=== PATIENT | female | born 1945 | race Asian ===

== ENCOUNTER 2017-06-07 07:57 | Emergency (ER) | payer OTHER ==
[2017-06-07 08:18] VITALS: RESP 16
[2017-06-07] MEDS ORDERED: ASPIRIN 81 MG CHEWABLE TAB PO ONE (08:19)
--- NOTE | 2017-06-07 08:26 | EDPHY ---
H & P Time Seen by Provider: 06/07/17 08:13 HPI/ROS: HPI Left upper back pain. 72-year-old female by private vehicle with her . This patient complains of left upper back and shoulder pain for 3 days. The pain is described as a burning ache. It is not worse with movement specifically. It has been constant. No associated shortness of breath. No associated chest pain. There is no history of trauma or other inciting event. ROS: Constitutional: No fever, no chills. No weakness. Eyes: No discharge. No changes in vision. ENT: No sore throat. No nasal congestion or rhinorrhea. Respiratory: No cough. No shortness of breath. Cardiac: No chest pain, no palpitations. Gastrointestinal: No abdominal pain, no vomiting, no diarrhea. Genitourinary: No hematuria. No dysuria or increased frequency with urination. Musculoskeletal: As above. No neck pain. No other extremity pain. Skin: No rashes. Neurological: No headache. No focal weakness or altered sensation. Past medical history: Hypertension. She takes metoprolol. No medication allergies. She has a primary care physician in this building. Social history: Nonsmoker. No alcohol. Here with her . Physical Exam: General Appearance: Alert, no distress. This patient is responding to questions appropriately and in full sentences. This patient appears well- hydrated and well-nourished. Eyes: Pupils equal and round no pallor or injection. No lid edema, erythema or injection. Respiratory: There are no retractions, lungs are clear to auscultation with good air movement bilaterally. Cardiovascular: Regular rate and rhythm. No murmur. Gastrointestinal: Abdomen is soft and nontender, no masses, bowel sounds normal. No focal tenderness at McBurney's point. No Mayes sign. Neurological: Motor sensory function is grossly intact. Cranial nerves are normal. Gait is normal. Skin: Warm and dry, erythematous vesicular rash patch a little larger than a silver dollar, left posterior shoulder just over the mid scapula. Blanching. No petechiae. This is directly over the area where she describes her pain. Musculoskeletal: Neck is supple and nontender. Extremities are symmetrical. All joints range without pain or impingement. Psychiatric: No agitation. No depression. Database: EKG: EKG time is 8:29 a.m.; EKG shows a narrow complex normal sinus rhythm with a ventricular rate of 64. The VT, QRS, QT intervals are within normal limits. There are no ST-T wave changes indicative of ischemic or injury pattern. No evidence of right heart strain. Interpreted by me. Imaging: Chest x-ray AP portable; the cardiac mediastinal silhouette is unremarkable. No evidence of infiltrate or pneumothorax. No acute cardiopulmonary disease process noted. Interpreted by me. Procedures: Emergency department course: IV placed. She was placed on a monitor. EKG performed and reviewed by myself. She was given 324 mg of chewed aspirin. No history of traumatic event. Rash on left posterior shoulder area suggestive of early zoster. Will evaluate for cardiac etiology. If negative plan will be to treat for shingles. 9:35 a.m., patient re-evaluated. Resting comfortably at this time. Results of her emergency department workup discussed with her and her . Her presentation and the results of her diagnostic testing are all reassuring that this is not secondary to a cardiac cause or pulmonary embolism. Based on her physical exam and vesicular rash as noted above her presentation is consistent with zoster. Plan will be to treat her with valacyclovir, calamine lotion directly to the area and NSAIDs. She will then follow up with her primary care physician for recheck on Saturday. The patient and her endorse this plan. I discussed return to emergency department precautions in detail with them. All of their questions were answered. The patient was discharged in good condition. Differential Diagnosis: The differential diagnosis on this patient includes but is not limited to musculoskeletal back pain, shingles, pulmonary embolism, cardiac cause. This represents a partial list of diagnoses considered. These considerations are based on history, physical exam, past history, reassessment and diagnostic testing. Constitutional: Initial Vital Signs Heart Rate 62 06/07/17 08:13 Respiratory Rate 16 06/07/17 08:13 Blood Pressure 182/102 H 06/07/17 08:13 O2 Sat (%) 99 06/07/17 08:13 O2 Delivery Mode Room Air Allergies/Adverse Reactions: No Known Allergies Allergy (Verified 06/07/17 08:13) Home Medications: Medication Instructions Recorded Hydrochlorothiazide 06/07/17 Metoprolol Tartrate 06/07/17 Potassium 06/07/17 Valacyclovir HCl [Valtrex] 1,000 mg PO TID #21 tab 06/07/17 Medical Decision Making - Diagnostics Imaging Results: Imaging Impressions Chest X-Ray 06/07/17 08:19 Impression: No acute conventional radiographic abnormality. - Data Points Laboratory Results: Laboratory Results 06/07/17 08:45 06/07/17 08:45 06/07/17 06/07/17 06/07/17 08:45 08:45 08:45 WBC 6.18 10^3/uL 10^3/uL (3.80-9.50) RBC 5.21 10^6/uL 10^6/uL (4.18-5.33) Hgb 14.6 g/dL g/dL (12.6-16.3) Hct 42.1 % % (38.0-47.0) MCV 80.8 fL L fL (81.5-99.8) MCH 28.0 pg pg (27.9-34.1) MCHC 34.7 g/dL g/dL (32.4-36.7) RDW 13.3 % % (11.5-15.2) Plt Count 250 10^3/uL 10^3/uL (150-400) MPV 8.6 fL L fL (8.7-11.7) Neut % (Auto) 68.6 % % (39.3-74.2) Lymph % (Auto) 21.7 % % (15.0-45.0) [place] % (Auto) 8.4 % % (4.5-13.0) Eos % (Auto) 0.5 % L % (0.6-7.6) Baso % (Auto) 0.5 % % (0.3-1.7) Nucleat RBC Rel Count 0.0 % % (0.0-0.2) Absolute Neuts (auto) 4.24 10^3/uL 10^3/uL (1.70-6.50) Absolute Lymphs (auto) 1.34 10^3/uL 10^3/uL (1.00-3.00) Absolute Monos (auto) 0.52 10^3/uL 10^3/uL (0.30-0.80) Absolute Eos (auto) 0.03 10^3/uL 10^3/uL (0.03-0.40) Absolute Basos (auto) 0.03 10^3/uL 10^3/uL (0.02-0.10) Absolute Nucleated RBC 0.00 10^3/uL 10^3/uL (0-0.01) Immature Gran % 0.3 % % (0.0-1.1) Immature Gran # 0.02 10^3/uL 10^3/uL (0.00-0.10) PT 12.7 SEC SEC (12.0-15.0) INR 0.98 (0.83-1.16) APTT 28.0 SEC SEC (23.0-38.0) D-Dimer 0.37 ug/mLFEU ug/mLFEU (0.00-0.50) Sodium 133 mEq/L L mEq/L (134-144) Potassium 4.2 mEq/L mEq/L (3.5-5.2) Chloride 96 mEq/L L mEq/L (97-110) Carbon Dioxide 26 mEq/l mEq/l (22-31) Anion Gap 11 mEq/L mEq/L (8-16) BUN 10 mg/dL mg/dL (7-23) Creatinine 0.6 mg/dL mg/dL (0.6-1.0) Estimated GFR > 60 Glucose 88 mg/dL mg/dL (70-100) Calcium 9.2 mg/dL mg/dL (8.5-10.4) Creatine Kinase 63 IU/L IU/L (0-156) CK-MB (CK-2) Fraction 1.19 ng/mL ng/mL (0.00-4.55) Troponin I < 0.012 ng/mL ng/mL (0.000-0.034) Medications Given: Discontinued Medications Aspirin (Aspirin) 324 mg PO EDNOW ONE Stop: 06/07/17 08:20 Last Admin: 06/07/17 08:36 Dose: 324 mg Departure - Departure Disposition: Home, Routine, Self-Care Clinical Impression: Upper back pain on left side, Shingles Condition: Good Instructions: Shingles (ED) Additional Instructions: Read and follow provided instructions. Follow-up with your primary care physician on Saturday as discussed for re- evaluation Take medication as prescribed through entire course of treatment. Ibuprofen dosin mg every 6 hours with meals for the next 3 days only. Calamine lotion to the area of the rash can provide some relief in discomfort. Ask your pharmacist for this medication. Return to the emergency department immediately for worsening symptoms, any chest pain, any shortness of breath, worsening pain or other serious concerns. Referrals: Yanira Arzola MD [Primary Care Provider] - As per Instructions Prescriptions: Valacyclovir HCl [Valtrex] 1,000 mg PO TID #21 tab
--- NOTE | 2017-06-07 08:31 | CPEKG ---
Heart Rate: 64 RR Interval: 938 P-R Interval: 168 QRSD Interval: 78 QT Interval: 448 QTC Interval: 463 P [place]: 77 QRS [place]: 44 T Wave [place]: 39 EKG Severity - NORMAL ECG - EKG Impression: SINUS RHYTHM Electronically Signed By: Eric Judd 07-Jun-2017 10:45:09
[2017-06-07 08:53] LABS: % IMMATURE GRANULYOCYTES 0.3 % (0.0-1.1); ABSOLUTE IMMATURE GRANULOCYTES 0.02 10^3/uL (0.00-0.10); ADD DIFF? NO; ADD MORPH? NO; ADD SCAN? NO; ATYPICAL LYMPHOCYTE FLAG 10 (0-99); FRAGMENT RBC FLAG 0 (0-99); HEMATOCRIT 42.1 % (38.0-47.0); HEMOGLOBIN 14.6 g/dL (12.6-16.3); LEFT SHIFT FLG 0 (0-99); LIPEMIA HEMOLYSIS FLAG 90 (0-99); MEAN CELL HEMOGLOBIN CONCENTR. 34.7 g/dL (32.4-36.7); MEAN CELL VOLUME 80.8 fL (81.5-99.8); MEAN PLATELET VOLUME 8.6 fL (8.7-11.7); PLATELET CLUMPS FLAG 0 (0-99); PLATELET COUNT 250 10^3/uL (150-400); RED BLOOD CELL COUNT 5.21 10^6/uL (4.18-5.33); RED CELL DISTRIBUTION WIDTH 13.3 % (11.5-15.2)
[2017-06-07 09:07] LABS: ANION GAP 11 mEq/L (8-16); CALCIUM 9.2 mg/dL (8.5-10.4); CARBON DIOXIDE 26 mEq/l (22-31); CHLORIDE 96 mEq/L (97-110); CREATININE 0.6 mg/dL (0.6-1.0); GLOMERULAR FILTRATION RATE > 60; GLUCOSE 88 mg/dL (70-100); POTASSIUM 4.2 mEq/L (3.5-5.2); SODIUM 133 mEq/L (134-144)
[2017-06-07 09:13] LABS: INR 0.98 (0.83-1.16); PROTIME(PATIENT) 12.7 SEC (12.0-15.0)
[2017-06-07 09:22] LABS: CREATINE KINASE-MB FRACTION 1.19 ng/mL (0.00-4.55); TROPONIN I < 0.012 ng/mL (0.000-0.034)
[2017-06-07 09:41] VITALS: BP 165/94; PULSE 63; TEMP 98.1; O2SAT 96
== END 2017-06-07 09:56 | disposition home or self-care (01) ==
LOC: CED 07:57
DX: M54.6 Pain in thoracic spine (principal); B02.9 Zoster without complications; I10 Essential (primary) hypertension
CPT/HCPCS: 71010-PO; 80048-PO; 82550-PO; 82553-PO; 84484-PO; 85025-PO; 85378-PO; 85610-PO; 85730-PO

== ENCOUNTER → 2019-02-03 | Outpatient (CLI) | payer OTHER | LOC: CIMAGING 13:07 ==

== ENCOUNTER → 2019-02-17 | Outpatient (CLI) | payer OTHER | LOC: FIMAGING 14:05 ==